=== PATIENT | male | born 1935 | race Caucasian/White ===

== ENCOUNTER 2018-04-02 13:46 | Inpatient (IN) | payer MEDICARE, OTHER ==
[~2018-04-02] VITALS: Ht 175.3 cm; Wt 67.7 kg
[2018-04-02] VITALS: BP 162/77
[~2018-04-02 13:46] MED LIST: ACET200V24 PO; ADV50500 IH; ALB0.5UD IH; ALBU8.5H8 IH; FAMO-128 PO; LACT1CAP57 PO; LOSA50TA21 PO; METO25TA6 PO; NITR0.4T51 SL; OMEP20CA10 PO; PRED10TA PO; SIMV20TA5 PO; SPIIN IH; ZOLP6.2526 PO
[2018-04-02] MEDS ORDERED: albuterol 2.5 MG/3 ML nebule NEB ONE (13:55)
[2018-04-02] MEDS ORDERED: methylPREDNISolone sod succ 125mg/2ml vial IV ONE (13:55)
[2018-04-02] MEDS ORDERED: normal saline 1000ML IV soln IV ONE (13:55)
[2018-04-02 14:40] LABS: BASOPHILS % (AUTO) 0.1 % (0-1); EOSINOPHILS # (AUTO) 0.1 X10'3 (0-0.9); EOSINOPHILS % (AUTO) 0.8 % (0-6); HEMATOCRIT 39.6 % (42.0-52.0); LYMPHOCYTES # (AUTO) 0.6 X10'3 (1.1-4.8); LYMPHOCYTES % (AUTO) 6.4 % (21-51); MEAN CORPUSCULAR HEMOGLOBIN 30.6 PG (27.0-31.0); MEAN CORPUSCULAR HGB CONC 32.8 % (33.0-36.5); MEAN CORPUSCULAR VOLUME 93.3 FL (78-98); MEAN PLATELET VOLUME 10.9 FL (7.4-10.4); MONOCYTES # (AUTO) 0.4 X10'3 (0-0.9); MONOCYTES % (AUTO) 4.2 % (2-12); NEUTROPHILS % (AUTO) 88.5 % (42-75); PLATELET COUNT 194 X10'3 (140-440); RED BLOOD COUNT 4.24 X10'6 (4.70-6.10); RED CELL DISTRIBUTION WIDTH 14.5 % (11.5-14.5); WHITE BLOOD COUNT 10.2 X10'3 (4.5-11.0)
[2018-04-02] MEDS ORDERED: CefTRIAXone 2gm/D5W 50ml 50 ML IV ONE (14:55)
[2018-04-02] MEDS ORDERED: azithromycin/NS 500mg/250ml 250 ML IV ONE (14:55)
[2018-04-02 14:57] LABS: ALANINE AMINOTRANSFERASE 23 U/L (12-78); ALBUMIN 3.5 G/DL (3.4-5.0); ALBUMIN/GLOBULIN RATIO 1.1 (1.1-1.5); ALKALINE PHOSPHATASE 75 IU/L (46-116); ANION GAP 5 (8-16); ASPARTATE AMINO TRANSFERASE 21 U/L (10-37); BILIRUBIN,TOTAL 0.5 MG/DL (0.1-1.0); BLOOD UREA NITROGEN 17 MG/DL (7-18); BUN/CREATININE RATIO 12.8 (5.4-32.0); CALCIUM 9.7 MG/DL (8.5-10.1); CHLORIDE 101 MMOL/L (99-107); CREATININE 1.33 MG/DL (0.60-1.10); GLUCOSE 148 MG/DL (70-104); POTASSIUM 4.3 MMOL/L (3.5-5.1); SODIUM 138 MMOL/L (135-145); TOTAL CARBON DIOXIDE 31.6 MMOL/L (24-32); TOTAL PROTEIN 6.6 G/DL (6.4-8.2); eGFR 52 ML/MIN
[2018-04-02] MEDS ORDERED: FLO0.4C PO (15:22)
[2018-04-02] MEDS ORDERED: GUAI120018 (15:22)
[2018-04-02] MEDS ORDERED: ALBU8.5H8 INH (15:22)
[2018-04-02] MEDS ORDERED: LORazepam 2 mg/ml vial IV ONE (15:45)
[2018-04-02] MEDS ORDERED: ipratropium/albuterol 3ml nebule NEB ONE (15:45)
[2018-04-02] MEDS: normal saline 1000ml 1,000 ML IV SCH ×2 (15:58→17:05)
[2018-04-02] MEDS ORDERED: magnesium 4gm in 100ml NS 100 ML IV PRN (16:00)
[2018-04-02] MEDS ORDERED: docusate sod 100mg capsule PO PRN (16:00)
[2018-04-02] MEDS ORDERED: potassium Cl 40MEQ/NS 500ml 500 ML IV PRN ×2 (16:00)
[2018-04-02] MEDS ORDERED: magnesium 1gm/100ml D5W IVPB 100 ML IV PRN (16:00)
[2018-04-02] MEDS ORDERED: acetaminophen 325mg tablet PO PRN (16:00)
[2018-04-02] MEDS ORDERED: ondansetron/PF 4mg/2ml inj IV PRN (16:00)
[2018-04-02] MEDS ORDERED: morphine 2 MG/ML inj. syringe IV PRN ×2 (16:00)
[2018-04-02] MEDS ORDERED: bisacodyl 10mg suppository rectal RC PRN (16:00)
[2018-04-02] MEDS ORDERED: potassium Cl 20 mEq SR tablet PO PRN ×2 (16:00)
[2018-04-02] MEDS: heparin, porcine 5000 units/ml vial SQ SCH (17:06)
[2018-04-02 17:39] LABS: CLARITY,URINE CLEAR (Clear); COLOR,URINE STRAW (Yellow); GLUCOSE, URINE NEGATIVE (Neg); KETONES,URINE NEGATIVE (Neg); LEUKOCYTE ESTERASE ,URINE NEGATIVE (Neg); NITRITES, URINE NEGATIVE (Neg); OCCULT BLOOD,URINE NEGATIVE (Neg); PROTEIN,URINE NEGATIVE (Neg); UROBILINOGEN,URINE 0.2 E.U/dL (0.2-1.0)
[2018-04-02 17:42] LABS: UA COLLECTION TYPE URINAL
[2018-04-02] MEDS ORDERED: METO-395 PO (19:35)
[2018-04-02] MEDS ORDERED: FLUT1DIS11 INH (19:35)
[2018-04-02] MEDS ORDERED: IPRA4AER IH (19:35)
[2018-04-02] MEDS: metoprolol tartrate 12.5mg (1/2 tablet) PO SCH (20:51)
[2018-04-02] MEDS: tamsulosin 0.4mg capsule PO SCH (20:51)
[2018-04-02] MEDS: atorvastatin 10mg tablet PO SCH (20:51)
[2018-04-02] MEDS: famotidine 20mg tablet PO SCH (20:51)
[2018-04-02] MEDS: doxycycline inj 100 MG in normal saline 100ml IV soln 100 ML IV SCH (20:52)
[2018-04-02 21:00] VITALS: BP 156/76
[2018-04-02] MEDS: temazepam 15mg capsule PO PRN (21:42)
[2018-04-02] MEDS: ibuprofen tablet 400 MG TABLET PO PRN (21:42)
[2018-04-02] MEDS: ipratropium/albuterol 3ml nebule NEB PRN (23:55)
[2018-04-03] MEDS: methylPREDNISolone sod succ 125mg/2ml vial IV SCH ×4 (00:36→20:00)
[2018-04-03] MEDS: heparin, porcine 5000 units/ml vial SQ SCH ×4 (00:40→23:12)
[2018-04-03] MEDS: normal saline 1000ml 1,000 ML IV SCH ×2 (01:58→11:58)
[2018-04-03 06:26] LABS: ABG BASE EXCESS 1.5 mmol/L (-2.0-3.0); ABG HCO3 26.5 mmol/L (22.0-26.0); ABG OXYGEN SATURATION 91.6 % (95-98); ABG PCO2 (T) 43.2 mmHg (35.0-48.0); ABG PH (T) 7.406 (7.350-7.450); ABG PO2 (T) 60.9 mmHg (83-108); ALLEN'S TEST Positive; FCOHb 1.1 % (0.5-1.5); FLOW 2 L/min; FMetHb 0.1 % (0.3-1.12); FO2Hb 90.5 % (94-100); TOTAL HEMOGLOBIN 13.1 G/dl (14.0-18.0)
[2018-04-03 06:37] LABS: CHOL/HDL RATIO 1.9 (0.00-4.99); CHOLESTEROL 138 MG/DL (0-200); HDL CHOLESTEROL 72 MG/DL (35-60); LDL CHOLESTEROL 59 MG/DL (50-100); MAGNESIUM 1.7 MG/DL (1.5-2.4); TRIGLYCERIDES 24 MG/DL (20-135)
[2018-04-03] MEDS: doxycycline inj 100 MG in normal saline 100ml IV soln 100 ML IV SCH (07:34)
[2018-04-03] MEDS: famotidine 20mg tablet PO SCH ×2 (07:36→20:00)
[2018-04-03] MEDS: losartan 25mg tablet PO SCH (07:48)
[2018-04-03] MEDS: pantoprazole 40mg Tablet.DR PO SCH (07:48)
[2018-04-03] MEDS: metoprolol tartrate 12.5mg (1/2 tablet) PO SCH ×2 (07:49→20:00)
[2018-04-03 08:00] VITALS: BP 149/71
[2018-04-03] MEDS ORDERED: losartan 50mg tablet PO SCH (08:00)
[2018-04-03] MEDS: K and/or MAG REPLACEMENT MC SCH (08:00)
[2018-04-03] MEDS: ipratropium/albuterol 3ml nebule NEB PRN ×2 (08:00→18:23)
[2018-04-03] MEDS ORDERED: pantoprazole 40mg Tablet.DR PO SCH (08:00)
[2018-04-03 12:00] VITALS: BP 145/74
[2018-04-03 13:06] LABS: BASOPHILS % (AUTO) 0 % (0-1); EOSINOPHILS # (AUTO) 0.1 X10'3 (0-0.9); EOSINOPHILS % (AUTO) 1.2 % (0-6); HEMOGLOBIN 12.3 g/dl (14.0-17.9); LYMPHOCYTES # (AUTO) 0.6 X10'3 (1.1-4.8); LYMPHOCYTES % (AUTO) 5.6 % (21-51); MEAN CORPUSCULAR HEMOGLOBIN 30.7 PG (27.0-31.0); MEAN CORPUSCULAR HGB CONC 33.1 % (33.0-36.5); MEAN CORPUSCULAR VOLUME 92.7 FL (78-98); MEAN PLATELET VOLUME 12.6 FL (7.4-10.4); MONOCYTES # (AUTO) 0.2 X10'3 (0-0.9); MONOCYTES % (AUTO) 2.3 % (2-12); NEUTROPHILS # (AUTO) 9.8 X10'3 (1.8-7.7); NEUTROPHILS % (AUTO) 90.9 % (42-75); PLATELET COUNT 180 X10'3 (140-440); RED BLOOD COUNT 3.99 X10'6 (4.70-6.10); RED CELL DISTRIBUTION WIDTH 14.2 % (11.5-14.5); WHITE BLOOD COUNT 10.8 X10'3 (4.5-11.0)
[2018-04-03 13:25] LABS: ALANINE AMINOTRANSFERASE 22 U/L (12-78); ALBUMIN 3.2 G/DL (3.4-5.0); ALBUMIN/GLOBULIN RATIO 1.1 (1.1-1.5); ALKALINE PHOSPHATASE 63 IU/L (46-116); ANION GAP 6 (8-16); ASPARTATE AMINO TRANSFERASE 20 U/L (10-37); BILIRUBIN,TOTAL 0.4 MG/DL (0.1-1.0); BLOOD UREA NITROGEN 22 MG/DL (7-18); BUN/CREATININE RATIO 15.6 (5.4-32.0); CALCIUM 9.5 MG/DL (8.5-10.1); CHLORIDE 101 MMOL/L (99-107); CREATININE 1.41 MG/DL (0.60-1.10); GLUCOSE 130 MG/DL (70-104); POTASSIUM 4.5 MMOL/L (3.5-5.1); SODIUM 138 MMOL/L (135-145); TOTAL PROTEIN 6.2 G/DL (6.4-8.2); eGFR 48 ML/MIN
[2018-04-03] MEDS: LIDOcaine/PRILOcaine 5gm cream TP PRN ×2 (14:13→21:33)
[2018-04-03] MEDS: DOXYCYCLINE 100MG CAPSULE PO SCH (16:49)
[2018-04-03 19:00] VITALS: BP 144/68
[2018-04-03] MEDS: lactobacillus rhamnosus 10,000 MMU CELLS/CAPSULE PO SCH (20:00)
[2018-04-03] MEDS: guaiFENesin ER 600mg tablet PO SCH (20:00)
[2018-04-03] MEDS: tamsulosin 0.4mg capsule PO SCH (21:00)
[2018-04-03] MEDS: atorvastatin 10mg tablet PO SCH (21:00)
[2018-04-03] MEDS: ibuprofen tablet 400 MG TABLET PO PRN (21:32)
[2018-04-03] MEDS: temazepam 15mg capsule PO PRN (22:16)
[2018-04-04] VITALS: BP 125/65
[2018-04-04] MEDS: ipratropium/albuterol 3ml nebule NEB PRN ×3 (03:03→18:31)
[2018-04-04 07:00] VITALS: BP 129/60
[2018-04-04] MEDS: K and/or MAG REPLACEMENT MC SCH (08:00)
[2018-04-04] MEDS: LORazepam 0.5 MG tablet PO PRN (08:26)
[2018-04-04] MEDS: methylPREDNISolone sod succ 125mg/2ml vial IV SCH (08:27)
[2018-04-04] MEDS: famotidine 20mg tablet PO SCH ×2 (09:06→22:52)
[2018-04-04] MEDS: heparin, porcine 5000 units/ml vial SQ SCH ×2 (09:06→16:15)
[2018-04-04] MEDS: lactobacillus rhamnosus 10,000 MMU CELLS/CAPSULE PO SCH ×2 (09:06→22:51)
[2018-04-04] MEDS: pantoprazole 40mg Tablet.DR PO SCH (09:07)
[2018-04-04] MEDS: guaiFENesin ER 600mg tablet PO SCH ×2 (09:07→22:51)
[2018-04-04] MEDS: DOXYCYCLINE 100MG CAPSULE PO SCH ×3 (09:07→18:23)
[2018-04-04] MEDS: metoprolol tartrate 12.5mg (1/2 tablet) PO SCH ×2 (09:07→22:51)
[2018-04-04] MEDS: losartan 25mg tablet PO SCH (09:07)
[2018-04-04] MEDS ORDERED: GUAI600T89 PO (09:13)
[2018-04-04 12:00] VITALS: BP 130/68
[2018-04-04] MEDS: mag hydrox/Alum hydrox/simeth 30ml oral suspension PO PRN ×2 (12:57→23:38)
[2018-04-04] MEDS: FLUTICASONE IH SCH ×2 (18:33→20:00)
[2018-04-04] MEDS: SALMETEROL IH SCH ×2 (18:33→20:00)
[2018-04-04 19:30] VITALS: BP 149/72
[2018-04-04] MEDS: methylPREDNISolone sod succ/PF 40mg inj. IV SCH (22:49)
[2018-04-04] MEDS: atorvastatin 10mg tablet PO SCH (22:51)
[2018-04-04] MEDS: tamsulosin 0.4mg capsule PO SCH (22:52)
[2018-04-04 23:30] VITALS: BP 171/80
[2018-04-04] MEDS: LIDOcaine/PRILOcaine 5gm cream TP PRN (23:39)
[2018-04-05] MEDS: temazepam 15mg capsule PO PRN (00:27)
[2018-04-05] MEDS: heparin, porcine 5000 units/ml vial SQ SCH ×3 (00:27→16:00)
[2018-04-05] MEDS: ipratropium/albuterol 3ml nebule NEB PRN ×2 (02:57→07:41)
[2018-04-05] MEDS: LORazepam 0.5 MG tablet PO PRN (03:04)
[2018-04-05 06:11] LABS: MAGNESIUM 2.1 MG/DL (1.5-2.4)
[2018-04-05] MEDS: methylPREDNISolone sod succ/PF 40mg inj. IV SCH (07:36)
[2018-04-05] MEDS: SALMETEROL IH SCH (07:39)
[2018-04-05] MEDS: FLUTICASONE IH SCH (07:39)
[2018-04-05] MEDS: metoprolol tartrate 12.5mg (1/2 tablet) PO SCH (07:41)
[2018-04-05] MEDS: famotidine 20mg tablet PO SCH (07:41)
[2018-04-05] MEDS: lactobacillus rhamnosus 10,000 MMU CELLS/CAPSULE PO SCH (07:41)
[2018-04-05] MEDS: pantoprazole 40mg Tablet.DR PO SCH (07:42)
[2018-04-05] MEDS: guaiFENesin ER 600mg tablet PO SCH (07:42)
[2018-04-05] MEDS: losartan 25mg tablet PO SCH (07:42)
[2018-04-05] MEDS: DOXYCYCLINE 100MG CAPSULE PO SCH (07:44)
[2018-04-05] MEDS: K and/or MAG REPLACEMENT MC SCH (08:00)
[2018-04-05 08:18] LABS: BASOPHILS % (AUTO) 0 % (0-1); EOSINOPHILS % (AUTO) 0 % (0-6); HEMATOCRIT 38.8 % (42.0-52.0); HEMOGLOBIN 12.9 g/dl (14.0-17.9); LYMPHOCYTES # (AUTO) 0.4 X10'3 (1.1-4.8); LYMPHOCYTES % (AUTO) 3.5 % (21-51); MEAN CORPUSCULAR HEMOGLOBIN 30.7 PG (27.0-31.0); MEAN CORPUSCULAR HGB CONC 33.1 % (33.0-36.5); MEAN CORPUSCULAR VOLUME 92.7 FL (78-98); MEAN PLATELET VOLUME 12.6 FL (7.4-10.4); MONOCYTES # (AUTO) 0.3 X10'3 (0-0.9); MONOCYTES % (AUTO) 2.6 % (2-12); NEUTROPHILS # (AUTO) 11.1 X10'3 (1.8-7.7); NEUTROPHILS % (AUTO) 93.9 % (42-75); PLATELET COUNT 152 X10'3 (140-440); RED BLOOD COUNT 4.19 X10'6 (4.70-6.10); RED CELL DISTRIBUTION WIDTH 14.3 % (11.5-14.5); WHITE BLOOD COUNT 11.8 X10'3 (4.5-11.0)
[2018-04-05 08:34] LABS: ALANINE AMINOTRANSFERASE 27 U/L (12-78); ALBUMIN 3.2 G/DL (3.4-5.0); ALBUMIN/GLOBULIN RATIO 1.1 (1.1-1.5); ALKALINE PHOSPHATASE 60 IU/L (46-116); ANION GAP 6 (8-16); ASPARTATE AMINO TRANSFERASE 36 U/L (10-37); BILIRUBIN,TOTAL 0.4 MG/DL (0.1-1.0); BLOOD UREA NITROGEN 37 MG/DL (7-18); BUN/CREATININE RATIO 29.4 (5.4-32.0); CALCIUM 9.8 MG/DL (8.5-10.1); CHLORIDE 102 MMOL/L (99-107); CREATININE 1.26 MG/DL (0.60-1.10); GLUCOSE 153 MG/DL (70-104); POTASSIUM 4.6 MMOL/L (3.5-5.1); SODIUM 138 MMOL/L (135-145); TOTAL CARBON DIOXIDE 30.1 MMOL/L (24-32); eGFR 55 ML/MIN
[2018-04-05 08:55] VITALS: BP 170/80
[2018-04-05 10:19] LABS: LARGE PLATELETS FEW; PLATELET ESTIMATE NORMAL
[2018-04-05 11:34] VITALS: BP 141/73
[2018-04-05] MEDS ORDERED: LIDO30CR23 TP (14:22)
[2018-04-05] MEDS ORDERED: PRED20TA PO (14:22)
[2018-04-05] MEDS ORDERED: DOXY-224 PO (14:22)
== END 2018-04-05 16:51 | disposition home health service (06) | DRG 189 ==
LOC: ER 13:46 → ED HOLD 15:58 → SUR 3N 20:10
PROVIDERS: ADMIT Family Medicine; ATTEND Family Medicine
DX: J96.21 Acute and chronic respiratory failure with hypoxia (principal); J44.1 Chronic obstructive pulmonary disease with (acute) exacerbation; E78.00 Pure hypercholesterolemia, unspecified; E78.5 Hyperlipidemia, unspecified; F17.210 Nicotine dependence, cigarettes, uncomplicated; R60.0 Localized edema; R91.1 Solitary pulmonary nodule; I12.9 Hypertensive chronic kidney disease with stage 1 through stage 4 chronic kidney disease, or unspecified chronic kidney disease; K21.9 Gastro-esophageal reflux disease without esophagitis; N18.3 Chronic kidney disease, stage 3 (moderate); Z99.81 Dependence on supplemental oxygen; Z90.5 Acquired absence of kidney; Z88.2 Allergy status to sulfonamides; Z88.6 Allergy status to analgesic agent; Z79.899 Other long term (current) drug therapy; Z85.528 Personal history of other malignant neoplasm of kidney; Z82.49 Family history of ischemic heart disease and other diseases of the circulatory system
CPT/HCPCS: 36415; 36600; 71045; 71100; 80053; 80061; 81003; 82803; 83605; 83735; 84145; 85018; 85025; 87040; 87070; 93005; 93970; 94640; 94760; 96361; 96365; 96375; 97110; 97116; 97163; 99285; G0378; J0456; J0696; J1644; J2060; J2270; J2920; J2930; J3490; J7030

== ENCOUNTER 2023-05-15 12:21 | Inpatient (IN) | payer MEDICARE, OTHER ==
[2023-05-15] VITALS (10 sets, daily range): BP systolic 123–126; BP diastolic 61–83; PULSE 76–110; RESP 17–23; TEMP 97.3–97.6; O2SAT 90–99
[~2023-05-15] VITALS: Ht 175.3 cm; Wt 75.0 kg
[~2023-05-15 12:21] MED LIST changes: -ACET200V24 PO; +ALBU8.5H17 INH; -ALBU8.5H8 IH; +DOXY-224 PO; +FLO0.4C PO; +FLUT1DIS11 INH; +GUAI600T89 PO; +IPRA4AER IH; -LACT1CAP57 PO; +LIDO30CR TP; -LOSA50TA21 PO; +LOSA50TA64 PO; +METO-395 PO; -METO25TA6 PO; -NITR0.4T51 SL; -OMEP20CA10 PO; +OMEP20CA15 PO; -PRED10TA PO; +SIMV-42 PO; -SIMV20TA5 PO; -ZOLP6.2526 PO
[2023-05-15] MEDS ORDERED: ondansetron/PF 4mg/2ml inj IV ONE (13:40)
[2023-05-15] MEDS ORDERED: morphine 4 MG/ML inj SYRINge IV ONE (13:40)
[2023-05-15] MEDS ORDERED: LIDOcaine 2% 10ml TOPICAL JELLY (Urojet) TP ONE (13:40)
[2023-05-15] MEDS ORDERED: LidoCAINE 2% Topical Jelly 11mL syringe TOP ONE ×2 (13:45→14:45)
[2023-05-15 14:17] LABS: BASOPHILS % (AUTO) 0.1 % (0-1); EOSINOPHILS % (AUTO) 0.1 % (0-6); HEMATOCRIT 38.5 % (42.0-52.0); HEMOGLOBIN 12.3 g/dl (14.0-17.9); LYMPHOCYTES # (AUTO) 0.2 X10'3 (1.1-4.8); LYMPHOCYTES % (AUTO) 1.5 % (21-51); MEAN CORPUSCULAR HEMOGLOBIN 29.3 PG (27.0-31.0); MEAN CORPUSCULAR HGB CONC 31.9 g/dL (33.0-36.5); MEAN CORPUSCULAR VOLUME 91.6 FL (78-98); MEAN PLATELET VOLUME 10.4 FL (7.4-10.4); MONOCYTES # (AUTO) 0.5 X10'3 (0-0.9); MONOCYTES % (AUTO) 3.8 % (2-12); NEUTROPHILS # (AUTO) 12.7 X10'3 (1.8-7.7); NEUTROPHILS % (AUTO) 94.5 % (42-75); PLATELET COUNT 198 X10'3 (140-440); RED CELL DISTRIBUTION WIDTH 14.5 % (11.5-14.5); WHITE BLOOD COUNT 13.4 X10'3 (4.5-11.0)
[2023-05-15 14:21] LABS: APTT 24 SECONDS (22-32); INR 1.1 INR; PROTHROMBIN TIME 11.5 SECONDS (9.0-12.0)
[2023-05-15 14:29] LABS: ALANINE AMINOTRANSFERASE 37 U/L (12-78); ALBUMIN 2.5 G/DL (3.4-5.0); ALBUMIN/GLOBULIN RATIO 0.6 (1.1-1.5); ALKALINE PHOSPHATASE 92 IU/L (46-116); ANION GAP 6 (8-16); ASPARTATE AMINO TRANSFERASE 26 U/L (10-37); BILIRUBIN,TOTAL 0.7 MG/DL (0.1-1.0); BLOOD UREA NITROGEN 18 MG/DL (7-18); BUN/CREATININE RATIO 15.9 (10.0-20.0); CALCIUM 10.1 MG/DL (8.5-10.1); CHLORIDE 102 MMOL/L (99-107); CREATININE 1.13 MG/DL (0.60-1.10); GLUCOSE 178 MG/DL (70-104); POTASSIUM 4.3 MMOL/L (3.5-5.1); SODIUM 140 MMOL/L (135-145); TOTAL CARBON DIOXIDE 32.3 MMOL/L (24-32); TOTAL PROTEIN 6.5 G/DL (6.4-8.2); eCRCL 44 ML/MIN; eGFR 62 ML/MIN
[2023-05-15 14:31] LABS: PRO BRAIN NATRIURETIC PEPTIDE 637 PG/ML (0-450)
[2023-05-15] MEDS ORDERED: PRED10TA PO (15:05)
[2023-05-15] MEDS ORDERED: GUAI-425 PO (15:05)
[2023-05-15] MEDS ORDERED: ATOR20TA66 PO (15:05)
[2023-05-15] MEDS ORDERED: ACET-3209 PO (15:05)
[2023-05-15] MEDS ORDERED: ESOM40CA54 PO (15:05)
[2023-05-15 15:06] LABS: BILIRUBIN,URINE NEGATIVE (Neg); CLARITY,URINE CLEAR (Clear); COLOR,URINE YELLOW (Yellow); GLUCOSE, URINE NEGATIVE (Neg); KETONES,URINE NEGATIVE (Neg); LEUKOCYTE ESTERASE ,URINE NEGATIVE (Neg); NITRITES, URINE NEGATIVE (Neg); OCCULT BLOOD,URINE NEGATIVE (Neg); PH,URINE 5.5 (4.8-8.0); PROTEIN,URINE NEGATIVE (Neg); UROBILINOGEN,URINE 0.2 E.U/dL (0.2-1.0)
[2023-05-15 15:10] LABS: UA COLLECTION TYPE FOLEY CATH
[2023-05-15] MEDS ORDERED: metoprolol tartrate 1mg/ml inj IV STA (15:28)
[2023-05-15] MEDS ORDERED: CefTRIAXone/D5W-Rocephin 1gm 50 ML IV ONE (16:05)
[2023-05-15] MEDS ORDERED: albuterol 2.5 MG/3 ML nebule NEB PRN (16:05)
[2023-05-15] MEDS ORDERED: PERFLUTREN PROTEIN-A MICROSPHR (Optison) 0.22 MG/ML 3ML VIAL IV ONE (16:10)
[2023-05-15] MEDS ORDERED: potassium Cl 20 mEq SR tablet PO PRN ×2 (16:10)
[2023-05-15] MEDS ORDERED: bisacodyl 10mg suppository rectal RC PRN (16:10)
[2023-05-15] MEDS ORDERED: magnesium 2GM in 50ml NS 50 ML IV PRN (16:10)
[2023-05-15] MEDS ORDERED: acetaminophen 325mg tablet PO PRN (16:10)
[2023-05-15] MEDS ORDERED: ondansetron/PF 4mg/2ml inj IV PRN (16:10)
[2023-05-15] MEDS ORDERED: potassium Cl 40MEQ/1/2NS 520ml 520 ML IV PRN (16:10)
[2023-05-15] MEDS ORDERED: magnesium 4gm in 100ml NS 100 ML IV PRN (16:10)
[2023-05-15] MEDS: normal saline 1000ml 1,000 ML IV SCH ×2 (16:20→19:00)
[2023-05-15] MEDS: nicotine 7mg patch - 24hr TD SCH (16:20)
[2023-05-15] MEDS ORDERED: famotidine 20mg tablet PO SCH (17:00)
[2023-05-15] MEDS ORDERED: naloxone 0.4 mg/ml inj IV ONE (18:15)
[2023-05-15 18:33] LABS: ABG BASE EXCESS 6.2 mmol/L (-2.0-2.0); ABG HCO3 41.8 mmol/L (22.0-26.0); ABG OXYGEN SATURATION 98.8 % (94-97); ABG PCO2 (T) > 150.0 mmHg (35.0-48.0); ABG PH (T) 7.045 (7.340-7.440); ABG PO2 (T) 163.7 mmHg (75.0-100.0); ALLEN'S TEST Modified; FCOHb 0.6 % (0.0-3.9); FHHb 1.2 % (0.0-5.0); FMetHb 0.2 % (0.0-1.5); MODE nrb; TOTAL HEMOGLOBIN 13.3 G/dl (14.0-17.9)
[2023-05-15] MEDS ORDERED: hyoscyamine 0.125mg TAB.SUBL SL PRN (18:55)
[2023-05-15] MEDS: budesonide 0.5mg/2ml UD nebule IH SCH (19:18)
[2023-05-15] MEDS: ipratropium/albuterol 3ml nebule NEB SCH ×2 (19:18→23:23)
[2023-05-15] MEDS: K and/or MAG REPLACEMENT MC SCH (20:00)
[2023-05-15] MEDS: docusate sod 100mg capsule PO SCH (20:00)
[2023-05-15] MEDS: methylPREDNISolone sod succ/PF 40mg inj. IV SCH (20:22)
[2023-05-15] MEDS: heparin, porcine 5000 units/ml vial SQ SCH (20:22)
[2023-05-15] MEDS: tamsulosin 0.4mg capsule PO SCH (20:25)
[2023-05-15 20:31] LABS: ABG BASE EXCESS 4.8 mmol/L (-2.0-2.0); ABG HCO3 34.3 mmol/L (22.0-26.0); ABG PCO2 (T) 78.1 mmHg (35.0-48.0); ALLEN'S TEST Modified; FCOHb 0.8 % (0.0-3.9); FHHb 10.9 % (0.0-5.0); FMetHb 0.3 % (0.0-1.5); RESPIRATORY RATE 12 b/min; TOTAL HEMOGLOBIN 12.9 G/dl (14.0-17.9)
[2023-05-15] MEDS: acetaminophen 325mg tablet PO SCH (21:00)
[2023-05-16] VITALS (16 sets, daily range): BP systolic 104; BP diastolic 53–60; PULSE 95–134; RESP 17–22; TEMP 98–98.5; O2SAT 89–97
[2023-05-16] MEDS: ipratropium/albuterol 3ml nebule NEB SCH ×5 (06:56→23:12)
[2023-05-16] MEDS: budesonide 0.5mg/2ml UD nebule IH SCH ×2 (06:57→19:29)
[2023-05-16 07:22] LABS: BASOPHILS % (AUTO) 0.1 % (0-1); EOSINOPHILS % (AUTO) 0 % (0-6); HEMATOCRIT 37.2 % (42.0-52.0); HEMOGLOBIN 11.8 g/dl (14.0-17.9); LYMPHOCYTES # (AUTO) 0.2 X10'3 (1.1-4.8); LYMPHOCYTES % (AUTO) 1.3 % (21-51); MEAN CORPUSCULAR HEMOGLOBIN 29.3 PG (27.0-31.0); MEAN CORPUSCULAR HGB CONC 31.7 g/dL (33.0-36.5); MEAN CORPUSCULAR VOLUME 92.5 FL (78-98); MEAN PLATELET VOLUME 10.3 FL (7.4-10.4); MONOCYTES # (AUTO) 0.2 X10'3 (0-0.9); MONOCYTES % (AUTO) 1.6 % (2-12); PLATELET COUNT 193 X10'3 (140-440); RED BLOOD COUNT 4.02 X10'6 (4.70-6.10); WHITE BLOOD COUNT 15.5 X10'3 (4.5-11.0)
[2023-05-16] MEDS: pantoprazole 40mg Tablet.DR PO SCH (07:30)
[2023-05-16 07:34] LABS: ALANINE AMINOTRANSFERASE 29 U/L (12-78); ALBUMIN 2.3 G/DL (3.4-5.0); ALBUMIN/GLOBULIN RATIO 0.6 (1.1-1.5); ALKALINE PHOSPHATASE 94 IU/L (46-116); ANION GAP 3 (8-16); ASPARTATE AMINO TRANSFERASE 23 U/L (10-37); BILIRUBIN,TOTAL 0.4 MG/DL (0.1-1.0); BLOOD UREA NITROGEN 30 MG/DL (7-18); BUN/CREATININE RATIO 21.3 (10.0-20.0); CALCIUM 9.9 MG/DL (8.5-10.1); CHLORIDE 103 MMOL/L (99-107); CREATININE 1.41 MG/DL (0.60-1.10); GLUCOSE 175 MG/DL (70-104); MAGNESIUM 2.1 MG/DL (1.5-2.4); POTASSIUM 5.7 MMOL/L (3.5-5.1); SODIUM 140 MMOL/L (135-145); TOTAL PROTEIN 6.4 G/DL (6.4-8.2); eCRCL 38 ML/MIN; eGFR 48 ML/MIN
[2023-05-16] MEDS: K and/or MAG REPLACEMENT MC SCH (08:00)
[2023-05-16] MEDS: nicotine 7mg patch - 24hr TD SCH (08:00)
[2023-05-16] MEDS: metoprolol succinate 25mg (24-HOUR) SR. Tablet PO SCH (08:00)
[2023-05-16] MEDS: atorvastatin 20mg tablet PO SCH (08:00)
[2023-05-16] MEDS: docusate sod 100mg capsule PO SCH ×2 (08:00→20:00)
[2023-05-16] MEDS: losartan 25mg tablet PO SCH (08:00)
[2023-05-16] MEDS ORDERED: albuterol 2.5 MG/3 ML nebule CONTNEB STA (08:34)
[2023-05-16] MEDS ORDERED: dextrose 50%-water 50ml dispensing syringe IV ONE ×2 (08:35→12:20)
[2023-05-16] MEDS ORDERED: insulin regular, human 10 units/0.1 ml syringe IV ONE (08:35)
[2023-05-16] MEDS ORDERED: sodium bicarbonate (8.4%) 1 mEq/ml syringe IV ONE (08:35)
[2023-05-16] MEDS ORDERED: sodium bicarbonate (8.4%) inj. 1 MEQ/ML ML IV ONE ×2 (08:55→12:20)
[2023-05-16] MEDS: morphine 2 MG/ML inj. syringe IV PRN (10:47)
[2023-05-16] MEDS: heparin, porcine 5000 units/ml vial SQ SCH ×2 (11:22→20:24)
[2023-05-16] MEDS: metoprolol tartrate 1mg/ml inj IV PRN (11:26)
[2023-05-16] MEDS: CefTRIAXone/D5W-Rocephin 1gm 50 ML IV SCH (11:50)
[2023-05-16] MEDS: methylPREDNISolone sod succ/PF 40mg inj. IV SCH ×3 (11:51→20:31)
[2023-05-16 14:50] LABS: ALBUMIN 2.1 G/DL (3.4-5.0); ANION GAP 4 (8-16); BLOOD UREA NITROGEN 35 MG/DL (7-18); BUN/CREATININE RATIO 24.3 (10.0-20.0); CALCIUM 9.6 MG/DL (8.5-10.1); CHLORIDE 105 MMOL/L (99-107); CREATININE 1.44 MG/DL (0.60-1.10); GLUCOSE 144 MG/DL (70-104); SODIUM 143 MMOL/L (135-145); TOTAL CARBON DIOXIDE 33.8 MMOL/L (24-32); eCRCL 37 ML/MIN; eGFR 47 ML/MIN
[2023-05-16] MEDS: normal saline 1000ml 1,000 ML IV SCH (20:39)
[2023-05-16] MEDS: tamsulosin 0.4mg capsule PO SCH (20:40)
[2023-05-16] MEDS: acetaminophen 325mg tablet PO SCH (21:00)
[2023-05-17] VITALS (16 sets, daily range): BP systolic 122–149; BP diastolic 68–80; PULSE 101–150; RESP 15–23; TEMP 97.4–98; O2SAT 92–98
[2023-05-17] MEDS: metoprolol tartrate 1mg/ml inj IV PRN ×3 (01:03→15:46)
[2023-05-17] MEDS: morphine 2 MG/ML inj. syringe IV PRN ×3 (01:54→20:14)
[2023-05-17 02:14] LABS: ALANINE AMINOTRANSFERASE 26 U/L (12-78); ALBUMIN/GLOBULIN RATIO 0.6 (1.1-1.5); ALKALINE PHOSPHATASE 74 IU/L (46-116); ANION GAP 4 (8-16); ASPARTATE AMINO TRANSFERASE 22 U/L (10-37); BILIRUBIN,TOTAL 0.3 MG/DL (0.1-1.0); BLOOD UREA NITROGEN 39 MG/DL (7-18); CALCIUM 8.8 MG/DL (8.5-10.1); CHLORIDE 107 MMOL/L (99-107); CREATININE 1.56 MG/DL (0.60-1.10); GLUCOSE 146 MG/DL (70-104); MAGNESIUM 1.9 MG/DL (1.5-2.4); SODIUM 144 MMOL/L (135-145); TOTAL CARBON DIOXIDE 32.9 MMOL/L (24-32); TOTAL PROTEIN 5.5 G/DL (6.4-8.2); eCRCL 34 ML/MIN; eGFR 42 ML/MIN
[2023-05-17] MEDS: normal saline 1000ml 1,000 ML IV SCH ×2 (05:40→20:00)
[2023-05-17 06:58] LABS: BASOPHILS % (AUTO) 0 % (0-1); EOSINOPHILS % (AUTO) 0 % (0-6); HEMOGLOBIN 11.3 g/dl (14.0-17.9); LYMPHOCYTES # (AUTO) 0.3 X10'3 (1.1-4.8); LYMPHOCYTES % (AUTO) 1.5 % (21-51); MEAN CORPUSCULAR HEMOGLOBIN 29.6 PG (27.0-31.0); MEAN CORPUSCULAR HGB CONC 32.2 g/dL (33.0-36.5); MEAN PLATELET VOLUME 10.9 FL (7.4-10.4); MONOCYTES # (AUTO) 0.5 X10'3 (0-0.9); MONOCYTES % (AUTO) 2.8 % (2-12); NEUTROPHILS # (AUTO) 16.7 X10'3 (1.8-7.7); NEUTROPHILS % (AUTO) 95.7 % (42-75); PLATELET COUNT 203 X10'3 (140-440); RED BLOOD COUNT 3.81 X10'6 (4.70-6.10); RED CELL DISTRIBUTION WIDTH 14.9 % (11.5-14.5); WHITE BLOOD COUNT 17.5 X10'3 (4.5-11.0)
[2023-05-17] MEDS: budesonide 0.5mg/2ml UD nebule IH SCH ×2 (07:07→21:00)
[2023-05-17] MEDS: ipratropium/albuterol 3ml nebule NEB SCH ×4 (07:07→21:00)
[2023-05-17] MEDS: pantoprazole 40mg Tablet.DR PO SCH (07:30)
[2023-05-17] MEDS: famotidine 20mg tablet PO SCH (08:00)
[2023-05-17] MEDS: atorvastatin 20mg tablet PO SCH (08:00)
[2023-05-17] MEDS: metoprolol succinate 25mg (24-HOUR) SR. Tablet PO SCH (08:00)
[2023-05-17] MEDS: docusate sod 100mg capsule PO SCH ×2 (08:00→20:00)
[2023-05-17] MEDS: losartan 25mg tablet PO SCH (08:00)
[2023-05-17] MEDS: heparin, porcine 5000 units/ml vial SQ SCH ×2 (08:00→19:58)
[2023-05-17] MEDS: K and/or MAG REPLACEMENT MC SCH (08:00)
[2023-05-17] MEDS: methylPREDNISolone sod succ/PF 40mg inj. IV SCH ×3 (08:58→19:59)
[2023-05-17] MEDS: nicotine 7mg patch - 24hr TD SCH (08:58)
[2023-05-17] MEDS: CefTRIAXone/D5W-Rocephin 1gm 50 ML IV SCH (09:05)
[2023-05-17 09:50] LABS: ABG BASE EXCESS 1.5 mmol/L (-2.0-2.0); ABG HCO3 27.7 mmol/L (22.0-26.0); ABG OXYGEN SATURATION 94.5 % (94-97); ABG PCO2 (T) 49.4 mmHg (35.0-48.0); ABG PH (T) 7.364 (7.340-7.440); ABG PO2 (T) 72.2 mmHg (75.0-100.0); ALLEN'S TEST POSITIVE; FCOHb 0.2 % (0.0-3.9); FHHb 5.5 % (0.0-5.0); FLOW 2 L/min; FO2Hb 94.3 % (94-97); MODE NASAL CANNULA; PATIENT TEMPERATURE 36.7; TOTAL HEMOGLOBIN 12.7 G/dl (14.0-17.9)
[2023-05-17] MEDS ORDERED: digoxin 250mcg/ml 2ml ampule IV ONE (16:15)
[2023-05-17] MEDS: metoprolol tartrate 1mg/ml inj IV SCH (19:58)
[2023-05-17] MEDS: tamsulosin 0.4mg capsule PO SCH (20:17)
[2023-05-17] MEDS: acetaminophen 325mg tablet PO SCH (21:00)
[2023-05-18] VITALS (17 sets, daily range): BP systolic 105–143; BP diastolic 69–78; PULSE 82–120; RESP 13–20; TEMP 97.3–98.6; O2SAT 91–97
[2023-05-18] MEDS: ipratropium/albuterol 3ml nebule NEB SCH ×6 (00:08→23:00)
[2023-05-18 02:07] LABS: ABG BASE EXCESS 3.6 mmol/L (-2.0-2.0); ABG HCO3 32.4 mmol/L (22.0-26.0); ABG OXYGEN SATURATION 94.6 % (94-97); ABG PCO2 (T) 71.6 mmHg (35.0-48.0); ABG PH (T) 7.274 (7.340-7.440); ABG PO2 (T) 80.1 mmHg (75.0-100.0); FCOHb 0.2 % (0.0-3.9); FHHb 5.4 % (0.0-5.0); FLOW 2 L/min; FMetHb 0.1 % (0.0-1.5); FO2Hb 94.3 % (94-97); MODE NASAL CANNULA; TOTAL HEMOGLOBIN 12.6 G/dl (14.0-17.9)
[2023-05-18] MEDS: digoxin 250mcg/ml 2ml ampule IV SCH ×2 (04:02→05:44)
[2023-05-18] MEDS: metoprolol tartrate 1mg/ml inj IV SCH ×4 (04:16→20:16)
[2023-05-18 05:10] LABS: ABG BASE EXCESS 5.6 mmol/L (-2.0-2.0); ABG HCO3 32.9 mmol/L (22.0-26.0); ABG OXYGEN SATURATION 96.9 % (94-97); ABG PCO2 (T) 61.4 mmHg (35.0-48.0); ABG PH (T) 7.347 (7.340-7.440); ABG PO2 (T) 92.7 mmHg (75.0-100.0); FCOHb 0.1 % (0.0-3.9); FHHb 3.1 % (0.0-5.0); FMetHb 0.3 % (0.0-1.5); FO2Hb 96.5 % (94-97); MODE BIPAP 15/5; TOTAL HEMOGLOBIN 12.2 G/dl (14.0-17.9)
[2023-05-18] MEDS: piperacillin/tazo 3.375gm/50ml 50 ML IV SCH ×3 (05:27→16:08)
[2023-05-18] MEDS: normal saline 1000ml 1,000 ML IV SCH ×2 (06:40→19:49)
[2023-05-18] MEDS: budesonide 0.5mg/2ml UD nebule IH SCH ×2 (07:14→19:40)
[2023-05-18 07:21] LABS: BASOPHILS # (AUTO) 0.1 X10'3 (0-0.2); BASOPHILS % (AUTO) 0.4 % (0-1); EOSINOPHILS % (AUTO) 0 % (0-6); HEMATOCRIT 35.2 % (42.0-52.0); HEMOGLOBIN 11.3 g/dl (14.0-17.9); LYMPHOCYTES # (AUTO) 0.1 X10'3 (1.1-4.8); MEAN CORPUSCULAR HEMOGLOBIN 29.7 PG (27.0-31.0); MEAN CORPUSCULAR HGB CONC 32.1 g/dL (33.0-36.5); MEAN CORPUSCULAR VOLUME 92.7 FL (78-98); MEAN PLATELET VOLUME 9.7 FL (7.4-10.4); MONOCYTES # (AUTO) 0.4 X10'3 (0-0.9); MONOCYTES % (AUTO) 2.8 % (2-12); NEUTROPHILS # (AUTO) 13.5 X10'3 (1.8-7.7); NEUTROPHILS % (AUTO) 95.8 % (42-75); PLATELET COUNT 172 X10'3 (140-440); RED CELL DISTRIBUTION WIDTH 14.7 % (11.5-14.5); WHITE BLOOD COUNT 14.1 X10'3 (4.5-11.0)
[2023-05-18] MEDS: pantoprazole 40mg Tablet.DR PO SCH (07:30)
[2023-05-18] MEDS: methylPREDNISolone sod succ/PF 40mg inj. IV SCH ×3 (07:47→20:12)
[2023-05-18 07:54] LABS: ALANINE AMINOTRANSFERASE 29 U/L (12-78); ALBUMIN 2.2 G/DL (3.4-5.0); ALBUMIN/GLOBULIN RATIO 0.5 (1.1-1.5); ALKALINE PHOSPHATASE 81 IU/L (46-116); ANION GAP 4 (8-16); ASPARTATE AMINO TRANSFERASE 29 U/L (10-37); BILIRUBIN,TOTAL 0.3 MG/DL (0.1-1.0); BLOOD UREA NITROGEN 54 MG/DL (7-18); BUN/CREATININE RATIO 34.2 (10.0-20.0); CHLORIDE 107 MMOL/L (99-107); CREATININE 1.58 MG/DL (0.60-1.10); GLUCOSE 192 MG/DL (70-104); MAGNESIUM 2.4 MG/DL (1.5-2.4); POTASSIUM 4.6 MMOL/L (3.5-5.1); SODIUM 146 MMOL/L (135-145); TOTAL PROTEIN 6.8 G/DL (6.4-8.2); eCRCL 34 ML/MIN; eGFR 42 ML/MIN
[2023-05-18] MEDS: losartan 25mg tablet PO SCH (08:00)
[2023-05-18] MEDS: K and/or MAG REPLACEMENT MC SCH ×2 (08:00→19:40)
[2023-05-18] MEDS: heparin, porcine 5000 units/ml vial SQ SCH ×2 (08:00→19:41)
[2023-05-18] MEDS: atorvastatin 20mg tablet PO SCH (08:00)
[2023-05-18] MEDS: docusate sod 100mg capsule PO SCH ×2 (08:00→19:42)
[2023-05-18] MEDS: nicotine 7mg patch - 24hr TD SCH (08:00)
[2023-05-18] MEDS: famotidine 20mg tablet PO SCH (08:00)
[2023-05-18] MEDS ORDERED: digoxin 250mcg/ml 2ml ampule IV ONE (15:10)
[2023-05-18] MEDS: acetaminophen 325mg tablet PO SCH (20:05)
[2023-05-18] MEDS: tamsulosin 0.4mg capsule PO SCH (20:05)
[2023-05-19] VITALS (31 sets, daily range): BP systolic 116–158; BP diastolic 71–112; PULSE 78–163; RESP 14–24; TEMP 97.3–98.2; O2SAT 87–100
[2023-05-19] MEDS: piperacillin/tazo 3.375gm/50ml 50 ML IV SCH ×3 (00:36→16:42)
[2023-05-19] MEDS: morphine 2 MG/ML inj. syringe IV PRN ×3 (01:54→16:42)
[2023-05-19] MEDS: metoprolol tartrate 1mg/ml inj IV SCH ×3 (01:57→14:00)
[2023-05-19 06:16] LABS: BASOPHILS % (AUTO) 0.3 % (0-1); EOSINOPHILS % (AUTO) 0 % (0-6); HEMATOCRIT 36.5 % (42.0-52.0); HEMOGLOBIN 11.7 g/dl (14.0-17.9); LYMPHOCYTES # (AUTO) 0.1 X10'3 (1.1-4.8); LYMPHOCYTES % (AUTO) 0.7 % (21-51); MEAN CORPUSCULAR HEMOGLOBIN 29.4 PG (27.0-31.0); MEAN CORPUSCULAR HGB CONC 32.1 g/dL (33.0-36.5); MEAN CORPUSCULAR VOLUME 91.8 FL (78-98); MEAN PLATELET VOLUME 10.8 FL (7.4-10.4); MONOCYTES # (AUTO) 0.4 X10'3 (0-0.9); NEUTROPHILS # (AUTO) 12.9 X10'3 (1.8-7.7); PLATELET COUNT 173 X10'3 (140-440); RED BLOOD COUNT 3.97 X10'6 (4.70-6.10); RED CELL DISTRIBUTION WIDTH 14.7 % (11.5-14.5); WHITE BLOOD COUNT 13.5 X10'3 (4.5-11.0)
[2023-05-19 06:18] LABS: ALANINE AMINOTRANSFERASE 34 U/L (12-78); ALBUMIN 2.3 G/DL (3.4-5.0); ALBUMIN/GLOBULIN RATIO 0.6 (1.1-1.5); ALKALINE PHOSPHATASE 79 IU/L (46-116); ANION GAP 5 (8-16); ASPARTATE AMINO TRANSFERASE 35 U/L (10-37); BILIRUBIN,TOTAL 0.6 MG/DL (0.1-1.0); BLOOD UREA NITROGEN 48 MG/DL (7-18); BUN/CREATININE RATIO 36.4 (10.0-20.0); CALCIUM 10.2 MG/DL (8.5-10.1); CHLORIDE 111 MMOL/L (99-107); CREATININE 1.32 MG/DL (0.60-1.10); GLUCOSE 185 MG/DL (70-104); MAGNESIUM 2.4 MG/DL (1.5-2.4); SODIUM 150 MMOL/L (135-145); TOTAL CARBON DIOXIDE 33.6 MMOL/L (24-32); TOTAL PROTEIN 6.1 G/DL (6.4-8.2); eCRCL 40 ML/MIN; eGFR 51 ML/MIN
[2023-05-19] MEDS: ipratropium/albuterol 3ml nebule NEB SCH ×5 (07:22→23:00)
[2023-05-19] MEDS: budesonide 0.5mg/2ml UD nebule IH SCH ×2 (07:22→19:50)
[2023-05-19] MEDS: pantoprazole 40mg Tablet.DR PO SCH (07:30)
[2023-05-19] MEDS: normal saline 1000ml 1,000 ML IV SCH (07:40)
[2023-05-19] MEDS: metoprolol succinate 25mg (24-HOUR) SR. Tablet PO SCH (08:00)
[2023-05-19] MEDS: losartan 25mg tablet PO SCH (08:00)
[2023-05-19] MEDS: heparin, porcine 5000 units/ml vial SQ SCH (08:00)
[2023-05-19] MEDS: atorvastatin 20mg tablet PO SCH (08:00)
[2023-05-19] MEDS: famotidine 20mg tablet PO SCH (08:00)
[2023-05-19] MEDS: docusate sod 100mg capsule PO SCH (08:00)
[2023-05-19] MEDS: methylPREDNISolone sod succ/PF 40mg inj. IV SCH ×4 (08:00→22:16)
[2023-05-19] MEDS: K and/or MAG REPLACEMENT MC SCH ×2 (08:00→22:15)
[2023-05-19] MEDS ORDERED: digoxin 250mcg/ml 2ml ampule IV SCH (08:00)
[2023-05-19] MEDS: nicotine 7mg patch - 24hr TD SCH (08:31)
[2023-05-19] MEDS ORDERED: Potassium Cl inj 20 MEQ in dextrose 5%-water 990 ML IV SCH (08:55)
[2023-05-19] MEDS: POTASSIUM Cl 20eq-D5W 1000mL 1,000 ML IV SCH ×2 (09:20→18:56)
[2023-05-19] MEDS ORDERED: vancomycin 1,000mg inj ONE (12:49)
[2023-05-19] MEDS ORDERED: cloNIDine hcl/PF 100mcg/ml inj ONE (13:09)
[2023-05-19] MEDS ORDERED: tranexamic acid 100mg/ml inj. ONE (13:54)
[2023-05-19] MEDS ORDERED: vancomycin 1,000mg inj IVT ONE (14:21)
[2023-05-19] MEDS ORDERED: proCHLORperazine 10 MG/2 ml inj IV PRN (14:25)
[2023-05-19] MEDS ORDERED: acetaminophen 1,000mg/100ml IV 100 ML IV ONE (14:25)
[2023-05-19] MEDS ORDERED: fentaNYL/PF 50MCG/1 ML 2ML syringe IV PRN (14:25)
[2023-05-19] MEDS ORDERED: ringers solution, lacted 1,000 ML IV ONE (14:25)
[2023-05-19] MEDS ORDERED: ondansetron/PF 4mg/2ml inj IV PRN (14:25)
[2023-05-19] MEDS ORDERED: propofol inj 20 ML IV ONE (14:29)
[2023-05-19] MEDS ORDERED: dexamethasone sod phosphate 4mg/ml inj. ONE (14:29)
[2023-05-19] MEDS ORDERED: ePHEDrine 50MG/ML INJ. ONE (14:29)
[2023-05-19] MEDS ORDERED: phenylephrine 10mg/ml inj. -priapism dosing ONE (14:29)
[2023-05-19] MEDS ORDERED: ceFAZolin 1000mg inj ONE ×2 (14:29)
[2023-05-19] MEDS ORDERED: 0.9 % SODIUM CHLORIDE 10 ML VIAL ONE (14:29)
[2023-05-19] MEDS ORDERED: ROPIVAcaine 0.5% (5mg/ml) 30ml vial ONE (14:29)
[2023-05-19] MEDS ORDERED: ipratropium/albuterol 3ml nebule NEB ONE (14:55)
[2023-05-19] MEDS ORDERED: CEFAZOLIN 2 GM injection IM SCH (16:00)
[2023-05-19] MEDS ORDERED: metoprolol tartrate 1mg/ml inj IV SCH (17:40)
[2023-05-19] MEDS: diltiazem-NS 100mg/100ml 100 ML IV SCH (20:05)
[2023-05-19] MEDS: enoxaparin 40mg/0.4ml syringe SUBCUT SCH (22:16)
[2023-05-19] MEDS: cefazolin 2gm/D5W 100mL 100 ML IV SCH (22:17)
[2023-05-20] VITALS (22 sets, daily range): BP systolic 128–148; BP diastolic 57–92; PULSE 83–123; RESP 14–25; TEMP 97.6–99.2; O2SAT 74–96
[2023-05-20] MEDS: piperacillin/tazo 3.375gm/50ml 50 ML IV SCH ×3 (00:14→16:00)
[2023-05-20] MEDS: morphine 2 MG/ML inj. syringe IV PRN ×2 (01:16→18:29)
[2023-05-20] MEDS: POTASSIUM Cl 20eq-D5W 1000mL 1,000 ML IV SCH ×2 (04:56→15:17)
[2023-05-20] MEDS: cefazolin 2gm/D5W 100mL 100 ML IV SCH ×2 (06:00→14:00)
[2023-05-20 06:31] LABS: BASOPHILS % (AUTO) 0.1 % (0-1); EOSINOPHILS % (AUTO) 0 % (0-6); HEMATOCRIT 36.2 % (42.0-52.0); HEMOGLOBIN 11.4 g/dl (14.0-17.9); LYMPHOCYTES # (AUTO) 0.1 X10'3 (1.1-4.8); LYMPHOCYTES % (AUTO) 0.6 % (21-51); MEAN CORPUSCULAR HEMOGLOBIN 29.1 PG (27.0-31.0); MEAN CORPUSCULAR HGB CONC 31.6 g/dL (33.0-36.5); MEAN CORPUSCULAR VOLUME 92.1 FL (78-98); MEAN PLATELET VOLUME 10.5 FL (7.4-10.4); MONOCYTES # (AUTO) 0.6 X10'3 (0-0.9); MONOCYTES % (AUTO) 3.2 % (2-12); NEUTROPHILS # (AUTO) 17.1 X10'3 (1.8-7.7); NEUTROPHILS % (AUTO) 96.1 % (42-75); PLATELET COUNT 164 X10'3 (140-440); RED BLOOD COUNT 3.93 X10'6 (4.70-6.10); RED CELL DISTRIBUTION WIDTH 15.1 % (11.5-14.5); WHITE BLOOD COUNT 17.8 X10'3 (4.5-11.0)
[2023-05-20] MEDS: diltiazem-NS 100mg/100ml 100 ML IV SCH ×2 (06:33→17:02)
[2023-05-20 07:04] LABS: ALANINE AMINOTRANSFERASE 34 U/L (12-78); ALBUMIN 2.3 G/DL (3.4-5.0); ALBUMIN/GLOBULIN RATIO 0.6 (1.1-1.5); ALKALINE PHOSPHATASE 72 IU/L (46-116); ANION GAP 6 (8-16); ASPARTATE AMINO TRANSFERASE 48 U/L (10-37); BILIRUBIN,TOTAL 0.5 MG/DL (0.1-1.0); BLOOD UREA NITROGEN 47 MG/DL (7-18); BUN/CREATININE RATIO 35.9 (10.0-20.0); CHLORIDE 111 MMOL/L (99-107); CREATININE 1.31 MG/DL (0.60-1.10); GLUCOSE 213 MG/DL (70-104); MAGNESIUM 2.5 MG/DL (1.5-2.4); POTASSIUM 3.9 MMOL/L (3.5-5.1); SODIUM 152 MMOL/L (135-145); TOTAL PROTEIN 5.9 G/DL (6.4-8.2); eCRCL 40 ML/MIN; eGFR 52 ML/MIN
[2023-05-20] MEDS: ipratropium/albuterol 3ml nebule NEB SCH ×5 (07:08→23:04)
[2023-05-20] MEDS: budesonide 0.5mg/2ml UD nebule IH SCH ×2 (07:08→21:00)
[2023-05-20] MEDS: K and/or MAG REPLACEMENT MC SCH ×2 (08:00→20:00)
[2023-05-20] MEDS: nicotine 7mg patch - 24hr TD SCH ×2 (08:00→12:38)
[2023-05-20] MEDS: pantoprazole 40 MG vial IV SCH (12:48)
[2023-05-20] MEDS: methylPREDNISolone sod succ/PF 40mg inj. IV SCH ×3 (12:48→21:07)
[2023-05-20] MEDS: acetaZOLAMIDE IV 500mg inj IV SCH (12:49)
[2023-05-20 19:30] LABS: ABG BASE EXCESS 3.3 mmol/L (-2.0-2.0); ABG HCO3 34.7 mmol/L (22.0-26.0); ABG OXYGEN SATURATION 87.4 % (94-97); ABG PCO2 (T) 95.8 mmHg (35.0-48.0); ABG PH (T) 7.176 (7.340-7.440); ABG PO2 (T) 63.7 mmHg (75.0-100.0); ALLEN'S TEST Modified; FCOHb 0.4 % (0.0-3.9); FHHb 12.5 % (0.0-5.0); FLOW 2 L/min; FMetHb 0.1 % (0.0-1.5); MODE NASAL CANNULA; PATIENT TEMPERATURE 36.8; TOTAL HEMOGLOBIN 12.7 G/dl (14.0-17.9)
[2023-05-20] MEDS: enoxaparin 40mg/0.4ml syringe SUBCUT SCH (21:07)
[2023-05-21] VITALS (26 sets, daily range): BP systolic 105–150; BP diastolic 54–78; PULSE 66–109; RESP 14–22; TEMP 97.8–100; O2SAT 91–99
[2023-05-21] MEDS: morphine 2 MG/ML inj. syringe IV PRN ×3 (02:07→20:52)
[2023-05-21] MEDS: piperacillin/tazo 3.375gm/50ml 50 ML IV SCH ×3 (02:14→16:34)
[2023-05-21] MEDS: diltiazem-NS 100mg/100ml 100 ML IV SCH ×2 (04:33→20:11)
[2023-05-21 07:16] LABS: BASOPHILS # (AUTO) 0.1 X10'3 (0-0.2); BASOPHILS % (AUTO) 0.6 % (0-1); EOSINOPHILS % (AUTO) 0 % (0-6); HEMATOCRIT 35.5 % (42.0-52.0); HEMOGLOBIN 11.3 g/dl (14.0-17.9); LYMPHOCYTES # (AUTO) 0.1 X10'3 (1.1-4.8); LYMPHOCYTES % (AUTO) 0.5 % (21-51); MEAN CORPUSCULAR HEMOGLOBIN 29.5 PG (27.0-31.0); MEAN CORPUSCULAR HGB CONC 31.8 g/dL (33.0-36.5); MEAN CORPUSCULAR VOLUME 92.9 FL (78-98); MEAN PLATELET VOLUME 10.3 FL (7.4-10.4); MONOCYTES # (AUTO) 0.4 X10'3 (0-0.9); MONOCYTES % (AUTO) 2.3 % (2-12); NEUTROPHILS # (AUTO) 18.2 X10'3 (1.8-7.7); NEUTROPHILS % (AUTO) 96.6 % (42-75); PLATELET COUNT 126 X10'3 (140-440); RED BLOOD COUNT 3.83 X10'6 (4.70-6.10); RED CELL DISTRIBUTION WIDTH 14.9 % (11.5-14.5); WHITE BLOOD COUNT 18.9 X10'3 (4.5-11.0)
[2023-05-21 07:31] LABS: ALANINE AMINOTRANSFERASE 16 U/L (12-78); ALBUMIN 2.1 G/DL (3.4-5.0); ALBUMIN/GLOBULIN RATIO 0.6 (1.1-1.5); ALKALINE PHOSPHATASE 57 IU/L (46-116); ANION GAP 3 (8-16); ASPARTATE AMINO TRANSFERASE 32 U/L (10-37); BILIRUBIN,TOTAL 0.4 MG/DL (0.1-1.0); BLOOD UREA NITROGEN 48 MG/DL (7-18); BUN/CREATININE RATIO 33.1 (10.0-20.0); CALCIUM 10.1 MG/DL (8.5-10.1); CHLORIDE 110 MMOL/L (99-107); CREATININE 1.45 MG/DL (0.60-1.10); GLUCOSE 256 MG/DL (70-104); SODIUM 150 MMOL/L (135-145); TOTAL CARBON DIOXIDE 36.6 MMOL/L (24-32); TOTAL PROTEIN 5.7 G/DL (6.4-8.2); eCRCL 37 ML/MIN; eGFR 46 ML/MIN
[2023-05-21] MEDS: K and/or MAG REPLACEMENT MC SCH ×2 (08:00→20:00)
[2023-05-21] MEDS: budesonide 0.5mg/2ml UD nebule IH SCH ×2 (08:06→19:32)
[2023-05-21] MEDS: ipratropium/albuterol 3ml nebule NEB SCH ×5 (08:06→23:11)
[2023-05-21] MEDS: pantoprazole 40 MG vial IV SCH (08:46)
[2023-05-21] MEDS: acetaZOLAMIDE IV 500mg inj IV SCH (08:46)
[2023-05-21] MEDS: methylPREDNISolone sod succ/PF 40mg inj. IV SCH ×3 (08:46→20:53)
[2023-05-21 11:31] LABS: ABG BASE EXCESS 3.9 mmol/L (-2.0-2.0); ABG HCO3 32.8 mmol/L (22.0-26.0); ABG OXYGEN SATURATION 95.9 % (94-97); ABG PCO2 (T) 69.6 mmHg (35.0-48.0); ABG PH (T) 7.286 (7.340-7.440); ABG PO2 (T) 80.1 mmHg (75.0-100.0); ALLEN'S TEST POSITIVE; FCOHb 0.5 % (0.0-3.9); FHHb 4.1 % (0.0-5.0); FMetHb 0.3 % (0.0-1.5); FO2Hb 95.1 % (94-97); MODE MASK - BIPAP; PATIENT TEMPERATURE 35.8; TIDAL VOLUME 525 mL; TOTAL HEMOGLOBIN 12.5 G/dl (14.0-17.9)
[2023-05-21] MEDS: dextrose 5%-water 1,000 ML IV SCH (12:00)
[2023-05-21 17:45] LABS: ABG HCO3 37.2 mmol/L (22.0-26.0); ABG OXYGEN SATURATION 85.1 % (94-97); ABG PCO2 (T) 77.5 mmHg (35.0-48.0); ABG PH (T) 7.297 (7.340-7.440); ABG PO2 (T) 50.7 mmHg (75.0-100.0); ALLEN'S TEST POSITIVE; FCOHb 0.8 % (0.0-3.9); FHHb 14.7 % (0.0-5.0); FMetHb 0.3 % (0.0-1.5); FO2Hb 84.2 % (94-97); PATIENT TEMPERATURE 36.7; TOTAL HEMOGLOBIN 12.3 G/dl (14.0-17.9)
[2023-05-21] MEDS: enoxaparin 40mg/0.4ml syringe SUBCUT SCH (21:28)
[2023-05-22] VITALS (31 sets, daily range): BP systolic 104–144; BP diastolic 58–86; PULSE 72–113; RESP 14–24; TEMP 96.8–98.2; O2SAT 88–99
[2023-05-22] MEDS: morphine 2 MG/ML inj. syringe IV PRN ×3 (02:00→22:51)
[2023-05-22] MEDS: piperacillin/tazo 3.375gm/50ml 50 ML IV SCH ×3 (02:10→16:20)
[2023-05-22] MEDS: dextrose 5%-water 1,000 ML IV SCH ×3 (02:17→21:17)
[2023-05-22] MEDS: ipratropium/albuterol 3ml nebule NEB SCH ×5 (06:57→23:16)
[2023-05-22] MEDS: budesonide 0.5mg/2ml UD nebule IH SCH ×2 (06:57→23:16)
[2023-05-22 07:44] LABS: BASOPHILS # (AUTO) 0.1 X10'3 (0-0.2); BASOPHILS % (AUTO) 0.3 % (0-1); EOSINOPHILS % (AUTO) 0 % (0-6); HEMATOCRIT 36.7 % (42.0-52.0); HEMOGLOBIN 11.8 g/dl (14.0-17.9); LYMPHOCYTES # (AUTO) 0.1 X10'3 (1.1-4.8); LYMPHOCYTES % (AUTO) 0.4 % (21-51); MEAN CORPUSCULAR HEMOGLOBIN 30.1 PG (27.0-31.0); MEAN CORPUSCULAR VOLUME 93.8 FL (78-98); MEAN PLATELET VOLUME 11.6 FL (7.4-10.4); MONOCYTES # (AUTO) 0.4 X10'3 (0-0.9); MONOCYTES % (AUTO) 1.9 % (2-12); NEUTROPHILS # (AUTO) 20.8 X10'3 (1.8-7.7); NEUTROPHILS % (AUTO) 97.4 % (42-75); PLATELET COUNT 118 X10'3 (140-440); RED BLOOD COUNT 3.91 X10'6 (4.70-6.10); RED CELL DISTRIBUTION WIDTH 15.2 % (11.5-14.5); WHITE BLOOD COUNT 21.4 X10'3 (4.5-11.0)
[2023-05-22] MEDS: K and/or MAG REPLACEMENT MC SCH ×2 (08:00→20:00)
[2023-05-22] MEDS: nicotine 7mg patch - 24hr TD SCH (08:00)
[2023-05-22 08:15] LABS: ALANINE AMINOTRANSFERASE 13 U/L (12-78); ALBUMIN/GLOBULIN RATIO 0.5 (1.1-1.5); ALKALINE PHOSPHATASE 54 IU/L (46-116); ANION GAP 4 (8-16); ASPARTATE AMINO TRANSFERASE 24 U/L (10-37); BILIRUBIN,TOTAL 0.4 MG/DL (0.1-1.0); BLOOD UREA NITROGEN 60 MG/DL (7-18); BUN/CREATININE RATIO 34.1 (10.0-20.0); CALCIUM 10.2 MG/DL (8.5-10.1); CHLORIDE 108 MMOL/L (99-107); CREATININE 1.76 MG/DL (0.60-1.10); GLUCOSE 278 MG/DL (70-104); POTASSIUM 3.7 MMOL/L (3.5-5.1); SODIUM 147 MMOL/L (135-145); TOTAL CARBON DIOXIDE 34.7 MMOL/L (24-32); TOTAL PROTEIN 5.7 G/DL (6.4-8.2); eCRCL 30 ML/MIN; eGFR 37 ML/MIN
[2023-05-22 08:36] LABS: PREALBUMIN 13.6 MG/DL (19-36)
[2023-05-22] MEDS: acetaZOLAMIDE IV 500mg inj IV SCH (08:58)
[2023-05-22] MEDS: pantoprazole 40 MG vial IV SCH (08:58)
[2023-05-22] MEDS: methylPREDNISolone sod succ/PF 40mg inj. IV SCH ×3 (08:58→20:29)
[2023-05-22 09:32] LABS: BURR CELLS 1+; ELLIPTOCYTES 1+; PLATELET ESTIMATE DECREASED; SCHISTOCYTES FEW
[2023-05-22 10:37] LABS: ABG BASE EXCESS 7.9 mmol/L (-2.0-2.0); ABG HCO3 40.7 mmol/L (22.0-26.0); ABG OXYGEN SATURATION 86.1 % (94-97); ABG PCO2 (T) 116.8 mmHg (35.0-48.0); ABG PO2 (T) 58.7 mmHg (75.0-100.0); ALLEN'S TEST POSITIVE; FCOHb 0.9 % (0.0-3.9); FHHb 13.8 % (0.0-5.0); FO2Hb 85.3 % (94-97); MODE MASK - BIPAP; TIDAL VOLUME 350 mL; TOTAL HEMOGLOBIN 12.9 G/dl (14.0-17.9)
[2023-05-22] MEDS: enoxaparin 40mg/0.4ml syringe SUBCUT SCH (20:26)
[2023-05-22] MEDS: diltiazem-NS 100mg/100ml 100 ML IV SCH (20:28)
[2023-05-23] VITALS (13 sets, daily range): BP systolic 97–100; BP diastolic 56–70; PULSE 66–84; RESP 11–28; TEMP 97.1–98.1; O2SAT 90–100
[2023-05-23] MEDS: piperacillin/tazo 3.375gm/50ml 50 ML IV SCH ×2 (00:41→07:58)
[2023-05-23 00:45] LABS: CLARITY,URINE CLOUDY (Clear); COLOR,URINE RED (Yellow)
[2023-05-23 00:52] LABS: UA COLLECTION TYPE CLN CATCH MIDSTREAM
[2023-05-23 00:58] LABS: RBC,URINE TNTC /HPF (0-2)
[2023-05-23 00:59] LABS: MUCUS STRANDS NONE SEEN /LPF (Neg); SQUAMOUS EPITHELIAL CELL,UR FEW /LPF (FEW)
[2023-05-23 01:02] LABS: BACTERIA,URINE 2+ /HPF (Neg)
[2023-05-23 01:03] LABS: WBC,URINE 20-30 /HPF (0-4)
[2023-05-23] MEDS ORDERED: normal saline 500ml IV soln 500 ML IV ONE (04:15)
[2023-05-23] MEDS: dextrose 5%-water 1,000 ML IV SCH (05:24)
[2023-05-23] MEDS: ipratropium/albuterol 3ml nebule NEB SCH ×2 (07:01→10:28)
[2023-05-23] MEDS: budesonide 0.5mg/2ml UD nebule IH SCH (07:01)
[2023-05-23 07:21] LABS: LYMPHOCYTES # (AUTO) 0.1 X10'3 (1.1-4.8); LYMPHOCYTES % (AUTO) 0.5 % (21-51); MONOCYTES # (AUTO) 0.5 X10'3 (0-0.9); MONOCYTES % (AUTO) 2.2 % (2-12)
[2023-05-23 07:22] LABS: BASOPHILS % (AUTO) 0 % (0-1); EOSINOPHILS % (AUTO) 0 % (0-6); MEAN PLATELET VOLUME 11.7 FL (7.4-10.4); NEUTROPHILS # (AUTO) 23.5 X10'3 (1.8-7.7); NEUTROPHILS % (AUTO) 97.3 % (42-75); PLATELET COUNT 123 X10'3 (140-440); RED CELL DISTRIBUTION WIDTH 15.6 % (11.5-14.5); WHITE BLOOD COUNT 24.1 X10'3 (4.5-11.0)
[2023-05-23 07:51] LABS: ALANINE AMINOTRANSFERASE 13 U/L (12-78); ALBUMIN/GLOBULIN RATIO 0.5 (1.1-1.5); ALKALINE PHOSPHATASE 57 IU/L (46-116); ANION GAP 5 (8-16); ASPARTATE AMINO TRANSFERASE 22 U/L (10-37); BILIRUBIN,TOTAL 0.4 MG/DL (0.1-1.0); BLOOD UREA NITROGEN 66 MG/DL (7-18); CALCIUM 9.9 MG/DL (8.5-10.1); CHLORIDE 101 MMOL/L (99-107); POTASSIUM 4.1 MMOL/L (3.5-5.1); SODIUM 139 MMOL/L (135-145); TOTAL CARBON DIOXIDE 32.9 MMOL/L (24-32); TOTAL PROTEIN 5.7 G/DL (6.4-8.2); eCRCL 24 ML/MIN; eGFR 29 ML/MIN
[2023-05-23 07:57] LABS: HEMATOCRIT 38.5 % (42.0-52.0); HEMOGLOBIN 12.5 g/dl (14.0-17.9); MEAN CORPUSCULAR HEMOGLOBIN 29.9 PG (27.0-31.0); MEAN CORPUSCULAR HGB CONC 32.5 g/dL (33.0-36.5); RED BLOOD COUNT 4.18 X10'6 (4.70-6.10)
[2023-05-23] MEDS: methylPREDNISolone sod succ/PF 40mg inj. IV SCH ×2 (07:58→13:00)
[2023-05-23] MEDS: pantoprazole 40 MG vial IV SCH (07:58)
[2023-05-23] MEDS: nicotine 7mg patch - 24hr TD SCH (07:59)
[2023-05-23] MEDS: acetaZOLAMIDE IV 500mg inj IV SCH (07:59)
[2023-05-23] MEDS: K and/or MAG REPLACEMENT MC SCH (08:00)
[2023-05-23 08:17] LABS: GLUCOSE 412 MG/DL (70-104)
[2023-05-23] MEDS ORDERED: normal saline 1000ml 1,000 ML IV SCH (09:35)
[2023-05-23] MEDS ORDERED: morphine 10mg/0.5ml (conc. morphine) oral syringe PO PRN (13:20)
[2023-05-23] MEDS ORDERED: LORazepam 2 mg/ml vial IV PRN (13:20)
[2023-05-23] MEDS ORDERED: morphine 10mg/ml inj. IV PRN (13:20)
[2023-05-23] MEDS ORDERED: enoxaparin 30mg/0.3ml syringe SUBCUT SCH (20:00)
== END 2023-05-23 16:01 | DRG 521 ==
LOC: ER 12:22 → ED HOLD 16:10 → EDBEDREQ 16:33 → PCU 3S 17:18
PROVIDERS: ADMIT Family Medicine; ATTEND Family Medicine
PROC: 5A09357 Assistance with Respiratory Ventilation, Less than 24 Consecutive Hours, Continuous Positive Airway Pressure (ICD-10-PCS; 2023-05-15)
PROC: 5A09357 Assistance with Respiratory Ventilation, Less than 24 Consecutive Hours, Continuous Positive Airway Pressure (ICD-10-PCS; 2023-05-16)
PROC: 5A09357 Assistance with Respiratory Ventilation, Less than 24 Consecutive Hours, Continuous Positive Airway Pressure (ICD-10-PCS; 2023-05-18)
PROC: 5A09357 Assistance with Respiratory Ventilation, Less than 24 Consecutive Hours, Continuous Positive Airway Pressure (ICD-10-PCS; 2023-05-19)
PROC: 0SRR0JZ Replacement of Right Hip Joint, Femoral Surface with Synthetic Substitute, Open Approach (ICD-10-PCS; principal; 2023-05-19 13:17)
PROC: 5A09357 Assistance with Respiratory Ventilation, Less than 24 Consecutive Hours, Continuous Positive Airway Pressure (ICD-10-PCS; 2023-05-20)
PROC: 5A09357 Assistance with Respiratory Ventilation, Less than 24 Consecutive Hours, Continuous Positive Airway Pressure (ICD-10-PCS; 2023-05-21)
PROC: 5A09357 Assistance with Respiratory Ventilation, Less than 24 Consecutive Hours, Continuous Positive Airway Pressure (ICD-10-PCS; 2023-05-22)
PROC: 5A09357 Assistance with Respiratory Ventilation, Less than 24 Consecutive Hours, Continuous Positive Airway Pressure (ICD-10-PCS; 2023-05-23)
DX: S72.141A Displaced intertrochanteric fracture of right femur, initial encounter for closed fracture (principal); J69.0 Pneumonitis due to inhalation of food and vomit; N17.0 Acute kidney failure with tubular necrosis; J96.02 Acute respiratory failure with hypercapnia; J44.1 Chronic obstructive pulmonary disease with (acute) exacerbation; E87.0 Hyperosmolality and hypernatremia; J44.0 Chronic obstructive pulmonary disease with (acute) lower respiratory infection; E78.00 Pure hypercholesterolemia, unspecified; F17.210 Nicotine dependence, cigarettes, uncomplicated; I12.9 Hypertensive chronic kidney disease with stage 1 through stage 4 chronic kidney disease, or unspecified chronic kidney disease; I25.2 Old myocardial infarction; I48.91 Unspecified atrial fibrillation; N18.30 Chronic kidney disease, stage 3 unspecified; Z66 Do not resuscitate; D72.829 Elevated white blood cell count, unspecified; N28.9 Disorder of kidney and ureter, unspecified; R13.10 Dysphagia, unspecified; W18.30XA Fall on same level, unspecified, initial encounter; Y93.89 Activity, other specified; Y92.89 Other specified places as the place of occurrence of the external cause; Y99.8 Other external cause status; Z51.5 Encounter for palliative care; Z79.52 Long term (current) use of systemic steroids; Z79.899 Other long term (current) drug therapy; Z82.3 Family history of stroke; Z82.49 Family history of ischemic heart disease and other diseases of the circulatory system; Z88.5 Allergy status to narcotic agent; Z90.5 Acquired absence of kidney; Z99.81 Dependence on supplemental oxygen; Z88.2 Allergy status to sulfonamides; Z88.8 Allergy status to other drugs, medicaments and biological substances; Z95.5 Presence of coronary angioplasty implant and graft
CPT/HCPCS: 36415; 36600; 70450; 71045; 72170; 73502; 73700; 74018; 80048; 80053; 81001; 81003; 82803; 82948; 83605; 83735; 83880; 84134; 84145; 84484; 85008; 85018; 85025; 85610; 85730; 87040; 87081; 92508; 92616; 93005; 93308; 93970; 94640; 94660; 94760; 99285; A4314; A4333; A4338; A4615; A4618; A4620; A4624; A5200; A6212; A6213; A6446; A7000; C1776; C9113; G0378; J0690; J0696; J0735; J1100; J1120; J1160; J1644; J1650; J1815; J2270; J2310; J2370; J2405; J2543; J2704; J2795; J2920; J3370; J3480; J3490; J7030; J7040; J7070; J7120; J7121